=== PATIENT | female | born 1995 | race Two or more races ===

== ENCOUNTER 2024-03-06 14:25 | Outpatient (CLI) | payer OTHER | END 2024-03-06 14:29 | disposition home or self-care (01) | LOC: PRENATAL 14:25 | PROVIDERS: ATTEND Obstetrics & Gynecology Maternal & Fetal Medicine | DX: O35.9XX0 Maternal care for (suspected) fetal abnormality and damage, unspecified, not applicable or unspecified (principal); O35.3XX0 Maternal care for (suspected) damage to fetus from viral disease in mother, not applicable or unspecified; O36.1999 Maternal care for other isoimmunization, unspecified trimester, other fetus; O44.02 Complete placenta previa NOS or without hemorrhage, second trimester; Z3A.19 19 weeks gestation of pregnancy ==